=== PATIENT | female | born 1995 | race Two or more races ===

== ENCOUNTER 2018-08-12 12:05 | Inpatient (IN) | payer OTHER ==
[2018-08-12 13:05] LABS: BASO % 0.4 % (0-2.0); HEMATOCRIT 37.8 % (32.4-45.2); HEMOGLOBIN 12.4 GM/dL (10.7-15.3); LYMPH % 17.9 % (8-40); MCHC 32.9 g/dl (32.0-36.0); MEAN CELL VOLUME 85.1 fl (80-96); MEAN PLT VOLUME 10.9 fl (7.5-11.1); MONO % 5.9 % (3.8-10.2); NEUT % 74.8 % (42.8-82.8); PLATELET COUNT 209 K/MM3 (134-434); RBC 4.44 M/mm3 (3.60-5.2); RETICULOCYTES 2.88 % (0.5-1.5); WHITE BLOOD COUNT 9.9 K/mm3 (4.0-10.0)
[2018-08-12 13:19] LABS: INR 0.87 (0.83-1.09); PROTHROMBIN TIME (PATIENT) 10.2 SEC (9.7-13.0)
[2018-08-12 13:22] LABS: ACTIVATED PTT 31.6 SECONDS (25.2-36.5)
[2018-08-12 13:31] LABS: EPI CELLS 5.8 /HPF (0-5); URINE APPEARANCE CLOUDY; URINE BACTERIA 362.6 /hpf (NEGATIVE); URINE BILIRUBIN NEGATIVE (NEGATIVE); URINE CASTS 9 /hpf (0-8); URINE COLOR YELLOW; URINE GLUCOSE (UA) NEGATIVE (NEGATIVE); URINE KETONE NEGATIVE (NEGATIVE); URINE LEUK ESTERASE NEGATIVE (NEGATIVE); URINE NITRITE NEGATIVE (NEGATIVE); URINE PROTEIN 2+ (NEGATIVE); URINE RBC 1 /hpf (0-4); URINE UROBILINOGEN 0.2 mg/dL (0.2-1.0); URINE WBC 8 /hpf (0-5)
[2018-08-12 13:37] LABS: ALBUMIN 2.4 g/dl (3.4-5.0); ALK PHOS 276 U/L (45-117); ANION GAP 9 MMOL/L (8-16); BILIRUBIN,TOTAL 0.2 mg/dL (0.2-1); BLOOD UREA NITROGEN 10 mg/dL (7-18); CHLORIDE 107 mmol/L (98-107); CO2 23 mmol/L (21-32); CREATININE 0.5 mg/dL (0.55-1.3); GAMMA GLUTAMYL TRANSPEPTIDASE 20 U/L (5-85); GLUCOSE,RANDOM 90 mg/dL (74-106); POTASSIUM 4.1 mmol/L (3.5-5.1); SGOT/AST 23 U/L (15-37); SGPT/ALT 23 U/L (13-61); SODIUM 139 mmol/L (136-145); TOT PROT 6.6 g/dl (6.4-8.2); URIC ACID 4.1 mg/dL (2.6-7.2)
[2018-08-12 14:33] LABS: RPR NONREACTIVE (NONREACTIVE)
[2018-08-12] MEDS ORDERED: CITRIC ACID/SODIUM CITRATE 30 ML UNIT-DOSE CUP PO ONE (14:58)
--- NOTE | 2018-08-12 15:09 | HP ---
Past Medical History - Primary Care Physician PCP:: Duke Thorpe - Admission Chief Complaint: 38 WEEKS, pih, BREECH , OBESITY History of Present Illness: 23 YO F G 1 P0 38 WEEKS WITH BREECH PRESENTATION ,ELEVATION OF bp, 2+PROTEIN IN URINE AND RIGO ADMITTED FOR C/S , RISKS OF C/S HAS DISCUSSED WITH PATIENT , CX CLOSED BREECH -3 CA, FHR CAT 1 History Source: Patient Limitations to Obtaining History: No Limitations - Past Medical History ...: 1 ...Para: 0 ...LMP: 11/08/17 ...EDC by Sono: 08/26/18 - Past Surgical History Hx Myomectomy: No Hx Transabdominal Cerclage: No - Smoking History Have you smoked in the past 12 months: No - Alcohol/Substance Use History of Substance Use: reports: None - Social History History of Recent Travel: No Home Medications - Allergies Allergies/Adverse Reactions: Allergies Allergy/AdvReac Type Severity Reaction Status Date / Time No Known Allergies Allergy Verified 08/12/18 13:23 - Home Medications Home Medications: Ambulatory Orders Iron 1 tab PO DAILY 08/12/18 Vitamins (Sjr) - 1 tab PO DAILY 08/12/18 Review of Systems - Review of Systems Constitutional: reports: No Symptoms Eyes: reports: No Symptoms HENT: reports: No Symptoms Neck: reports: No Symptoms Cardiovascular: reports: No Symptoms Respiratory: reports: No Symptoms Gastrointestinal: reports: No Symptoms Genitourinary: reports: No Symptoms Breasts: reports: No Symptoms Reported Musculoskeletal: reports: No Symptoms Integumentary: reports: No Symptoms Neurological: reports: No Symptoms Endocrine: reports: No Symptoms, Unexplained Weight Gain Psychiatric: reports: No Symptoms Physical Exam - Maternity Vital Signs: Vital Signs Temperature 98 F 08/12/18 12:30 Pulse Rate 106 H 08/12/18 14:15 Respiratory Rate 20 08/12/18 14:15 Blood Pressure 142/74 08/12/18 14:15 O2 Sat by Pulse Oximetry (%) Constitutional: Yes: Obese (MORBID OBESITY) Eyes: Yes: WNL HENT: Yes: WNL Neck: Yes: WNL Cardiovascular: Yes: WNL Breast(s): Yes: WNL - Abdominal Exam/OB Fundal Height: 42 Number of Fetuses: Single Presentation: Breech Contractions: No Regularity: Irritability Intensity: Unaware Monitor Mode: External Heart Rate Location: [facility] Category: I Accelerations: Uniform Decelerations: None - Vaginal Exam/OB Vaginal Bleediing: No Speculum Exam: No Amniotic Membrane Status: Intact Presentation: Double Footling Breech Station: -3 - Physical Exam Musculoskeletal: Yes: WNL Extremities: Yes: WNL Edema: LLE: 1+, RLE: 1+ Deep Tendon Reflex Grade: Normal +2 ...Motor Strength: WNL Psychiatric: Yes: WNL - Labs Lab Results: CBC, BMP 08/12/18 12:40 08/12/18 12:40 Hemorrhage Risk Assessment - Risk Factors Medium Risk Factors: Yes: Obesity (BMI >40) Risk Score: 1 Risk Level: Medium Risk Problem List - Problems (1) with 38 completed weeks gestation Code(s): Z3A.38 - 38 WEEKS GESTATION OF (2) induced hypertension Code(s): O13.9 - GESTATIONAL HTN W/O SIGNIFICANT PROTEINURIA, UNSP TRIMESTER Qualifiers: Trimester: third trimester Qualified Code(s): O13.3 - Gestational [ -induced] hypertension without significant proteinuria, third trimester (3) Morbid obesity with BMI of 40.0-44.9, adult Code(s): E66.01 - MORBID (SEVERE) OBESITY DUE TO EXCESS CALORIES; Z68.41 - BODY MASS INDEX (BMI) 40.0-44.9, ADULT (4) Breech presentation Code(s): O32.1XX0 - MATERNAL CARE FOR BREECH PRESENTATION, UNSP Qualifiers: Fetus number: single or unspecified fetus Qualified Code(s): O32.1XX0 - Maternal care for breech presentation, not applicable or unspecified Assessment/Plan PLAN ADMIT, MONITOR fhr MONITOR fh C/S RISKS DISCUSSED
[2018-08-12 15:39] VITALS: BMI 59.9
[2018-08-12] MEDS: ELECTROLYTE-148 SOLN 1,000 ML IV SCH (16:00)
[2018-08-12] MEDS ORDERED: PROPOFOL 20 ML ONE ×2 (17:20)
[2018-08-12] MEDS ORDERED: morphine SULFATE/Preservative Free 0.5 MG/ML (1cc Syringe) ONE (17:20)
[2018-08-12] MEDS ORDERED: SUCCINYLCHOLINE CHLORIDE 200 MG/10 ML VIAL ONE (17:20)
[2018-08-12] MEDS ORDERED: MIDAZOLAM HCL 2 MG/2 ML SINGLE DOSE VIAL ONE (18:38)
[2018-08-12] MEDS ORDERED: KETAMINE HCL 500 MG/10 ML VIAL ONE (18:39)
[2018-08-12] MEDS ORDERED: OXYTOCIN 10 UNITS/ML VIAL ONE ×2 (18:56→19:39)
[2018-08-12] MEDS: OXYTOCIN 20 UNITS in 0.9% NS 20 UNIT/1,000 ML INFUS.BAG IV SCH ×2 (18:57→22:25)
[2018-08-12] MEDS ORDERED: GENTAMICIN SO4 80 MG/2 ML VIAL ONE (18:58)
[2018-08-12] MEDS ORDERED: VECURONIUM BROMIDE 10 MG VIAL ONE (19:05)
[2018-08-12] MEDS ORDERED: DEXAMETHASONE SOD PHOSPHATE 4 MG/1 ML VIAL ONE (19:30)
[2018-08-12] MEDS ORDERED: KETOROLAC TROMETHAMINE 30 MG/1 ML VIAL ONE (19:30)
[2018-08-12] MEDS ORDERED: GLYCOPYRROLATE 0.2 MG/1 ML VIAL ONE (19:41)
[2018-08-12] MEDS ORDERED: MINERAL OIL/PETROLATUM,WHITE 3.5 GM TUBE ONE (20:05)
[2018-08-12] MEDS ORDERED: diphenhydrAMINE HCL 25 MG CAPSULE (FP) PO PRN (20:28)
[2018-08-12] MEDS ORDERED: BENZOCAINE 20% 57 GM BOTTLE TP PRN (20:28)
[2018-08-12] MEDS ORDERED: METHYLERGONOVINE MALEATE 0.2 MG/1 ML AMP IM PRN (20:28)
[2018-08-12] MEDS ORDERED: WITCH HAZEL 50% (TUCKS) 40 PAD/JAR PAD TP PRN (20:28)
[2018-08-12] MEDS ORDERED: oxyCODONE HCL 5 MG TABLET PO PRN (20:28)
[2018-08-12] MEDS ORDERED: BENZOCAINE 28 GM HEMORRHOIDAL OINTMENT PR PRN (20:28)
[2018-08-12] MEDS ORDERED: DEXTROSE 5%-LACTATED RINGERS 1,000 ML IV SCH (20:30)
[2018-08-12] MEDS ORDERED: ONDANSETRON 4 MG/2 ML VIAL IVPUSH PRN (20:39)
[2018-08-12] MEDS ORDERED: IBUPROFEN 800 MG/8 ML IJ IVPB ONE (21:04)
[2018-08-12] MEDS: IBUPROFEN 800 MG/8 ML IJ IVPB PRN (21:10)
[2018-08-12] MEDS ORDERED: OXYTOCIN 20 UNITS in 0.9% NS 20 UNIT/1,000 ML INFUS.BAG IV ONE (22:16)
[2018-08-13] MEDS ORDERED: AMPICILLIN SODIUM 2 GM VIAL ONE ×3 (00:41→17:29)
[2018-08-13] MEDS ORDERED: SODIUM CHLORIDE 100 ML IVPB ONE ×3 (00:41→17:29)
[2018-08-13] MEDS: GENTAMICIN 80 MG PREMIXED IVPB 80 MG/100 ML BAG IVPB SCH ×3 (01:11→17:32)
[2018-08-13] MEDS: AMPICILLIN - 2 GM in SODIUM CHLORIDE 100 ML IVPB SCH ×3 (01:11→17:32)
[2018-08-13] MEDS ORDERED: CEFAZOLIN 1 GM/D5W 50 ML IVPB SCH (02:00)
[2018-08-13] MEDS: IBUPROFEN 800 MG/8 ML IJ IVPB PRN ×2 (02:50→08:09)
[2018-08-13 03:15] LABS: HBsAG SCREEN Negative (Negative)
--- NOTE | 2018-08-13 08:08 | PN ---
Progress Note (short form) - Note Progress Note: pod 1, s/p c/s , doing well, no c/o, no excess vaginal bleeding CBC, BMP 08/12/18 12:40 Last Vital Signs Temp Pulse Resp BP Pulse Ox 98.3 F 100 H 18 115/51 L 100 08/13/18 06:00 08/13/18 06:00 08/13/18 06:00 08/13/18 06:00 08/12/18 21:00 abdomen soft, no distension, no cva incision dry, clean no calf tenderness lochia mild plan ambulate advance diet cbc DVT prophylaxis Problem List - Problems (1) with 38 completed weeks gestation Code(s): Z3A.38 - 38 WEEKS GESTATION OF (2) induced hypertension Code(s): O13.9 - GESTATIONAL HTN W/O SIGNIFICANT PROTEINURIA, UNSP TRIMESTER Qualifiers: Trimester: third trimester Qualified Code(s): O13.3 - Gestational [ -induced] hypertension without significant proteinuria, third trimester (3) Morbid obesity with BMI of 40.0-44.9, adult Code(s): E66.01 - MORBID (SEVERE) OBESITY DUE TO EXCESS CALORIES; Z68.41 - BODY MASS INDEX (BMI) 40.0-44.9, ADULT (4) Breech presentation Code(s): O32.1XX0 - MATERNAL CARE FOR BREECH PRESENTATION, UNSP Qualifiers: Fetus number: single or unspecified fetus Qualified Code(s): O32.1XX0 - Maternal care for breech presentation, not applicable or unspecified
[2018-08-13 08:31] LABS: BASO % 0.2 % (0-2.0); HEMATOCRIT 29.7 % (32.4-45.2); HEMOGLOBIN 9.8 GM/dL (10.7-15.3); MCH 28.1 pg (25.7-33.7); MCHC 33.1 g/dl (32.0-36.0); MEAN PLT VOLUME 11.1 fl (7.5-11.1); MONO % 5.8 % (3.8-10.2); PLATELET COUNT 196 K/MM3 (134-434); RBC 3.49 M/mm3 (3.60-5.2); RDW 15.5 % (11.6-15.6); WHITE BLOOD COUNT 12.7 K/mm3 (4.0-10.0)
--- NOTE | 2018-08-13 09:38 | PN ---
Progress Note (short form) - Note Progress Note: Anesthesia postop note POD#1. S/P primary . under Epidural converted to GA. Pat seen and examined. VSS. normal sensory and motor function. Pain well controlled. No apparent post anesthesia complications. continued care as per primary team.
[2018-08-13] MEDS: ENOXAPARIN NA (PORCINE) 40 MG/0.4 ML DISP.SYRIN SQ SCH (09:40)
[2018-08-13] MEDS ORDERED: DIPHTH,PERTUSS(ACELL),TET 0.5 ML DISP.SYRIN IM ONE (10:00)
[2018-08-13 12:25] LABS: RUBELLA IgG ANTIBODY 0.98 index (Immune >0.99)
[2018-08-13] MEDS: ACETAMINOPHEN 325 MG TABLET (FP) PO PRN ×2 (14:17→19:48)
[2018-08-13] MEDS: IBUPROFEN 600 MG TABLET (FP) PO PRN ×2 (14:19→19:49)
[2018-08-13] MEDS: ELECTROLYTE-148 SOLN 1,000 ML IV SCH (17:33)
[2018-08-13] MEDS: AMOX TR/POT CLAV 875MG/125MG TABLETS (FP) PO SCH (19:45)
[2018-08-13] MEDS: SIMETHICONE 80 MG TAB.CHEW (FP) PO PRN (19:49)
[2018-08-13] MEDS: oxyCODONE HCL 5 MG TABLET PO PRN (20:27)
[2018-08-13] MEDS ORDERED: BISACODYL 10 MG SUPP.RECT RC PRN (20:29)
[2018-08-14] MEDS: SIMETHICONE 80 MG TAB.CHEW (FP) PO PRN ×5 (02:19→21:13)
[2018-08-14] MEDS: IBUPROFEN 600 MG TABLET (FP) PO PRN ×5 (02:20→21:13)
[2018-08-14] MEDS: oxyCODONE HCL 5 MG TABLET PO PRN ×5 (02:20→21:13)
[2018-08-14] MEDS: AMOX TR/POT CLAV 875MG/125MG TABLETS (FP) PO SCH ×2 (07:27→17:11)
[2018-08-14] MEDS: ENOXAPARIN NA (PORCINE) 40 MG/0.4 ML DISP.SYRIN SQ SCH (09:30)
--- NOTE | 2018-08-14 18:08 | PN ---
Post Progress Note - Subjective Subjective: doing well, no issus or concerns minmal pain Type of Delivery: Primary C/S Vital Signs: Vital Signs Temperature 99.1 F 08/14/18 07:20 Pulse Rate 95 H 08/14/18 07:20 Respiratory Rate 18 08/14/18 07:20 Blood Pressure 125/66 08/14/18 07:20 O2 Sat by Pulse Oximetry (%) 100 08/12/18 21:00 Breast Exam: Yes: Soft Incision: Yes: Dressing dry and intact Abdomen/GI: Yes: Abdomen soft Lochia: Yes: Rubra Lochia, amount: Small Extremities: Yes: Calves non-tender Perineum: Yes: Intact - Labs Labs: CBC WBC 12.7 K/mm3 (4.0-10.0) H 08/13/18 07:45 RBC 3.49 M/mm3 (3.60-5.2) L 08/13/18 07:45 Hgb 9.8 GM/dL (10.7-15.3) L 08/13/18 07:45 Hct 29.7 % (32.4-45.2) L D 08/13/18 07:45 MCV 85.0 fl (80-96) 08/13/18 07:45 MCH 28.1 pg (25.7-33.7) 08/13/18 07:45 MCHC 33.1 g/dl (32.0-36.0) 08/13/18 07:45 RDW 15.5 % (11.6-15.6) 08/13/18 07:45 Plt Count 196 K/MM3 (134-434) 08/13/18 07:45 MPV 11.1 fl (7.5-11.1) 08/13/18 07:45 Absolute Neuts (auto) 10.0 K/mm3 (1.5-8.0) H 08/13/18 07:45 Neutrophils % 79.0 % (42.8-82.8) 08/13/18 07:45 Lymphocytes % 15.0 % (8-40) 08/13/18 07:45 Monocytes % 5.8 % (3.8-10.2) 08/13/18 07:45 Eosinophils % 0.0 % (0-4.5) D 08/13/18 07:45 Basophils % 0.2 % (0-2.0) 08/13/18 07:45 Nucleated RBC % 0 % (0-0) 08/13/18 07:45 Retic Count 2.88 % (0.5-1.5) H 08/12/18 12:40 Haptoglobin 122 mg/dL (34-200) 08/12/18 12:40 Assessment/Plan as above oob reg diet pain meds
[2018-08-14] MEDS ORDERED: SENNOSIDES/DOCUSATE COMBO (SENNA PLUS) TABLET (UD) PO PRN (22:00)
[2018-08-15] MEDS: SIMETHICONE 80 MG TAB.CHEW (FP) PO PRN ×4 (03:13→21:00)
[2018-08-15] MEDS: IBUPROFEN 600 MG TABLET (FP) PO PRN ×4 (03:13→21:00)
[2018-08-15] MEDS: oxyCODONE HCL 5 MG TABLET PO PRN ×2 (03:14→08:42)
[2018-08-15] MEDS: AMOX TR/POT CLAV 875MG/125MG TABLETS (FP) PO SCH ×2 (08:37→17:21)
[2018-08-15 09:18] LABS: BASO % 0.6 % (0-2.0); EOS % 1.8 % (0-4.5); HEMATOCRIT 28.4 % (32.4-45.2); HEMOGLOBIN 9.3 GM/dL (10.7-15.3); LYMPH % 30.6 % (8-40); MCH 28.2 pg (25.7-33.7); MCHC 32.6 g/dl (32.0-36.0); MEAN CELL VOLUME 86.5 fl (80-96); MEAN PLT VOLUME 10.4 fl (7.5-11.1); MONO % 5.8 % (3.8-10.2); NEUT % 61.2 % (42.8-82.8); PLATELET COUNT 200 K/MM3 (134-434); RBC 3.28 M/mm3 (3.60-5.2); RDW 15.6 % (11.6-15.6); WHITE BLOOD COUNT 7.9 K/mm3 (4.0-10.0)
[2018-08-15] MEDS: ENOXAPARIN NA (PORCINE) 40 MG/0.4 ML DISP.SYRIN SQ SCH (10:07)
[2018-08-15] MEDS: ACETAMINOPHEN 325 MG TABLET (FP) PO PRN ×2 (14:47→21:01)
[2018-08-16] MEDS: IBUPROFEN 600 MG TABLET (FP) PO PRN ×2 (02:55→08:55)
[2018-08-16] MEDS: SIMETHICONE 80 MG TAB.CHEW (FP) PO PRN ×2 (02:55→08:55)
[2018-08-16] MEDS: ACETAMINOPHEN 325 MG TABLET (FP) PO PRN ×2 (02:56→08:56)
--- NOTE | 2018-08-16 07:32 | PN ---
Post Progress Note Post Day: 4 Type of Delivery: Primary C/S Vital Signs: Vital Signs Temperature 98.7 F 08/15/18 21:37 Pulse Rate 90 08/15/18 21:37 Respiratory Rate 20 08/15/18 21:37 Blood Pressure 116/63 08/15/18 21:37 O2 Sat by Pulse Oximetry (%) 100 08/12/18 21:00 Breast Exam: Yes: Soft Uterus: Yes: Fundus Firm Incision: Yes: Antonietta intact Abdomen/GI: Yes: Abdomen soft Lochia: Yes: Rubra Lochia, amount: Small Extremities: Yes: Calves non-tender Perineum: Yes: Intact Activity: Ambulating - Labs Labs: CBC WBC 7.9 K/mm3 (4.0-10.0) 08/15/18 08:30 RBC 3.28 M/mm3 (3.60-5.2) L 08/15/18 08:30 Hgb 9.3 GM/dL (10.7-15.3) L 08/15/18 08:30 Hct 28.4 % (32.4-45.2) L 08/15/18 08:30 MCV 86.5 fl (80-96) 08/15/18 08:30 MCH 28.2 pg (25.7-33.7) 08/15/18 08:30 MCHC 32.6 g/dl (32.0-36.0) 08/15/18 08:30 RDW 15.6 % (11.6-15.6) 08/15/18 08:30 Plt Count 200 K/MM3 (134-434) 08/15/18 08:30 MPV 10.4 fl (7.5-11.1) 08/15/18 08:30 Absolute Neuts (auto) 4.8 K/mm3 (1.5-8.0) 08/15/18 08:30 Neutrophils % 61.2 % (42.8-82.8) D 08/15/18 08:30 Lymphocytes % 30.6 % (8-40) D 08/15/18 08:30 Monocytes % 5.8 % (3.8-10.2) 08/15/18 08:30 Eosinophils % 1.8 % (0-4.5) D 08/15/18 08:30 Basophils % 0.6 % (0-2.0) 08/15/18 08:30 Nucleated RBC % 0 % (0-0) 08/15/18 08:30 Retic Count 2.88 % (0.5-1.5) H 08/12/18 12:40 Haptoglobin 122 mg/dL (34-200) 08/12/18 12:40 Assessment/Plan doing well dc home make appt for staple removal wed or thur
[2018-08-16] MEDS: AMOX TR/POT CLAV 875MG/125MG TABLETS (FP) PO SCH (08:52)
[2018-08-16] MEDS: ENOXAPARIN NA (PORCINE) 40 MG/0.4 ML DISP.SYRIN SQ SCH (09:49)
[2018-08-16 12:17] VITALS: BP 123/73; PULSE 72; TEMP 98.1
--- NOTE | 2018-08-18 16:31 | PATH ---
Surgical Pathology Report Patient Name: ALBERTINA HUNTLEY Med. Rec. #: [id number] /Age/Gender: 1995 (Age: 22) / F Account: [id number] Location: [facility] OBS/SAW BOSS Taken: 08/12/2018 Received: 08/13/2018 Reported: 08/18/2018 Physicians: Duke Thorpe M.D. Specimen(s) Received PLACENTA Clinical History , 38 gestational weeks, breech, preeclampsia Final Diagnosis PLACENTA, SECTION: 542 G THIRD TRIMESTER PLACENTA WITH TRIVASCULAR UMBILICAL CORD AND UNREMARKABLE PLACENTAL MEMBRANES. Electronically Signed Lawanda Sprague M.D. Gross Description The specimen is received fresh labeled placenta and is a 542 gram, 16.0 x 13.5 x 3.2 cm. placenta with attached membranes and umbilical cord. The attached membranes are trinh, translucent with focal opacities and insert marginally. The umbilical cord measures 27 cm. in length and averages 1.2 cm. in diameter. The cord inserts eccentrically, 3.5 cm. to the nearest margin. No true knots or strictures are identified. Cut surface of the umbilical cord reveals 3 vessels. The surface is cabrera-blue with minimal fibrin deposition and appropriate caliber vessels. The maternal surface is red-brown with focal defects. Sectioning reveals red-brown, spongy parenchyma. No lesions are identified. [employer] Machine sections are submitted in three cassettes as follows: 1- membrane rolls and umbilical cord; 2-3- full thickness sections of placenta. /08/17/2018 saudi08/17/2018
== END 2018-08-16 13:00 | disposition home or self-care (01) | DRG 540 ==
LOC: JDEL 12:05 → JLDR 14:30 → J3W 22:30
PROVIDERS: ADMIT Obstetrics & Gynecology; ATTEND Obstetrics & Gynecology
PROC: 10D00Z1 Extraction of Products of Conception, Low, Open Approach (ICD-10-PCS; principal; 2018-08-12)
DX: O32.1XX0 Maternal care for breech presentation, not applicable or unspecified (principal); O99.214 Obesity complicating childbirth; E66.01 Morbid (severe) obesity due to excess calories; O13.4 Gestational [pregnancy-induced] hypertension without significant proteinuria, complicating childbirth; Z3A.38 38 weeks gestation of pregnancy; Z37.0 Single live birth
CPT/HCPCS: 36415; 36600; 80053; 81003; 82803; 82977; 83010; 84550; 85025; 85044; 85610; 85730; 86593; 86762; 86850; 86900; 86901; 87340; 87389; 88307-TC; 90715